=== PATIENT | male | born 1945 | race Caucasian/White ===

== ENCOUNTER 2021-05-25 00:32 | Observation (INO) ==
[2021-05-25] MEDS ORDERED: ONDANSETRON 4 MG/2 ML VIAL IV PRN (00:42)
[2021-05-25] MEDS ORDERED: ACETAMINOPHEN 325 MG TABLET PO PRN (00:42)
[2021-05-25] MEDS ORDERED: IBUPROFEN 600 MG TABLET PO PRN (00:42)
--- NOTE | 2021-05-25 00:50 | Internal Med History&Physical ---
HPI History of Present Illness Patient information: Note initiated : 05/25/21 at 12:45 am Service Date, if different from initiated Date: [] Patient: Casey Strauss 75 y/o M admitted on for Pain control. Chief Complaint: [] History of present illness: Mr. Strauss is a 75 year old male with a history of Parkinson's disease, diabetes mellitus, CAD, prior cervical spine surgery, and back pain that has progressed for over a week who lives in assisted living and suffered a mechanical fall at home. The patient feels like he fell because of his back pain which is worse with standing. He was seen at [facility] ED where a CT head and xrays of his back were done as well as laboratory workup that did not show any acute issues. The ED provider felt the patient needed to be admitted observation. He was transferred to [facility] due to lack of beds at [facility]. Review of systems Constitutional: no fever, fatigue, or weight loss Eyes: no vision changes or pain Cardiovascular: no chest pain, no palpitations Respiratory: no cough or dyspnea Gastrointestinal: no abdominal pain, no nausea, vomiting, or diarrhea Genitourinary: no dysuria or difficulty voiding Musculoskeletal: positive for pain on right forehead and back pain Integumentary: no skin lesion or wound Neurological: no focal weakness or numbness Psychiatric: no anxiety Physical exam Head: Atraumatic, normal inspection. Eyes: normal appearance, no scleral icterus. Neck: full ROM Respiratory: no respiratory distress. Cardiovascular: normal rate and rhythm, S1, S2. GI/Abdominal: obesity distended, surgical abdominal scars, soft, nontender, no guarding. Extremities: full range of motion, back pain to bilateral passive leg raise, back tenderness with palpation Neurological: CN II-XII intact, intact motor, intact sensation. Psychiatric: normal mood. Skin: warm, normal color MEDS/ALLERGIES Home Medications and Allergies Home Medications Medication Instructions Recorded Confirmed Type atorvastatin [Lipitor] 80 mg PO QPM 05/25/21 05/25/21 History calcium acetate(phosphat bind) 667 mg PO QAM 05/25/21 05/25/21 History carbidopa-levodopa [Sinemet] 25 - 100 tab PO Q8H 05/25/21 05/25/21 History escitalopram oxalate [Lexapro] 20 mg PO QAM 05/25/21 05/25/21 History finasteride [Proscar] 5 mg PO QAM 05/25/21 05/25/21 History isosorbide dinitrate 10 mg PO HS 05/25/21 05/25/21 History lisinopril 2.5 mg PO QAM 05/25/21 05/25/21 History metformin 1,000 mg PO BID 05/25/21 05/25/21 History metoprolol tartrate 25 mg PO QAM 05/25/21 05/25/21 History montelukast [Singulair] 10 mg PO QPM 05/25/21 05/25/21 History pantoprazole [Protonix] 40 mg PO QAM 05/25/21 05/25/21 History pregabalin [Lyrica] 150 mg PO TID 05/25/21 05/25/21 History sertraline [Zoloft] 100 mg PO QAM 05/25/21 05/25/21 History tamsulosin [Flomax] 0.4 mg PO QPM 05/25/21 05/25/21 History trazodone 100 mg PO QPM 05/25/21 05/25/21 History Allergies Allergy/AdvReac Type Severity Reaction Status Date / Time metoclopramide [From Reglan] Allergy Intermediate Shakiness Verified 05/25/21 03:41 promethazine Allergy Intermediate Shakiness Verified 05/25/21 03:41 quetiapine Allergy Intermediate Shakiness Verified 05/25/21 03:41 risperidone Allergy Intermediate Shakiness Verified 05/25/21 03:41 A/P Narrative A/P Narrative: Assessment: 75 year old male with a history of Parkinson's disease, diabetes mellitus, CAD who lives in assisted living and suffered a mechanical fall at home. #Acute on chronic back pain #Mechanical fall #Elevated creatinine #Parkinson's disease #Diabetes mellitus #Coronary artery disease #Depression #BPH Plan -Admit to observation -MRI lumbar spine -Analgesics prn. -Essential home meds. -PT and OT -DVT ppx: Ambulatory -Code status: Full -Disposition: Probably SNF Time Spent With Patient Time: Total time spent is greater than 50% in coordination of care (as documented) at patient's floor/unit and/or counseling patient:
[2021-05-25 03:53] LABS: Hematocrit 37.7 % (40.1-51.0); Hemoglobin 12.2 g/dL (13.7-17.5); Mean Cell Volume 93.5 fL (80.0-100.0); Mean Corpuscular HGB Conc 32.4 g/dL (31.0-36.0); Mean Platelet Volume 10.3 fL (7.4-10.4); Platelet Count 196 K/mcL (140-440); RBC 4.03 M/mcL (4.63-6.08); Red Cell Distribution Width 13.9 % (11.5-14.5)
[2021-05-25] MEDS ORDERED: IBUPROFEN 600 MG TABLET PO ONE (03:53)
[2021-05-25 04:03] LABS: ALT/SGPT 5 U/L (<40); AST/SGOT 23 U/L (<40); Albumin 3.5 gm/dL (3.2-5.2); Albumin/Globulin Ratio 1.6 (1.0-2.3); Alkaline Phosphatase 42 U/L (39-117); Bilirubin,Direct < 0.2 mg/dL (0-0.3); Bilirubin,Total 0.3 mg/dL (0.1-1.0); Blood Urea Nitrogen 21 mg/dL (8-23); Calcium 8.6 mg/dL (8.6-10.4); Carbon Dioxide 27 mmol/L (22-30); Chloride 106 mmol/L (96-108); Globulin 2.2 gm/dL (2.2-3.7); Glomerular Filtration Rate 54; Glucose 104 mg/dL (70-105); Lactate Dehydrogenase 133 U/L (135-225); Phosphorous 3.9 mg/dL (2.5-4.5); Triglycerides 58 mg/dL (<150); Uric Acid 6.6 mg/dL (2.5-8.0)
[2021-05-25 05:20] LABS: Band Neutrophils % 2 % (0-10); Lymphocytes % 26 % (15-49); Monocytes % (Manual) 9 % (1-12); Platelet Estimate NORMAL (Normal); RBC Morphology NORMAL (Normal); Reactive Lymphocytes 2 % (0-2); Segmented Neutrophils % 61 % (38-78)
[2021-05-25] MEDS ORDERED: MAGNESIUM SULFATE 2 GM/50 ML BAG IV ONE (07:33)
[2021-05-25] MEDS ORDERED: 0.9 % SODIUM CHLORIDE 500 ML IV ONE (07:33)
[2021-05-25] MEDS ORDERED: HYDROcodone/APAP 5/325MG TABLET PO PRN (08:21)
[2021-05-25] MEDS ORDERED: HYDROmorphone 0.5 MG/0.5 ML SYRINGE IV PRN (08:21)
[2021-05-25] MEDS: FINASTERIDE 5 MG TABLET PO SCH (08:23)
[2021-05-25] MEDS: DOCUSATE SODIUM 100 MG CAPSULE PO SCH ×2 (08:23→21:02)
[2021-05-25] MEDS: metFORMIN 500 MG TABLET PO SCH ×2 (08:23→16:51)
[2021-05-25] MEDS: METOPROLOL TARTRATE 25 MG TABLET PO SCH (08:23)
[2021-05-25] MEDS: PANTOPRAZOLE 40 MG TABLET PO SCH (08:23)
[2021-05-25] MEDS: PREGABALIN 150 MG CAPSULE PO SCH ×3 (08:23→21:02)
[2021-05-25] MEDS: ESCITALOPRAM 20 MG TABLET PO SCH (08:23)
[2021-05-25] MEDS: 0.9 % SODIUM CHLORIDE 10 ML SYRINGE IV SCH ×3 (08:25→21:03)
[2021-05-25] MEDS: POLYETHYLENE GLYCOL 3350 17 GM PACKET PO SCH (08:53)
[2021-05-25] MEDS: CARBIDOPA/LEVODOPA 25/100 TABLET PO SCH ×3 (08:53→21:01)
[2021-05-25] MEDS ORDERED: traMADol 50 MG TABLET PO PRN (10:48)
--- NOTE | 2021-05-25 14:20 | Magnetic Resonance Report ---
History: Progressively worsening low back pain over the past week and a recent fall while at home, prior laminectomies TECHNIQUE: Multiplanar imaging was performed using multiple pulse sequences. FINDINGS: There is no fracture or destructive bone lesion. No paraspinal mass or hematoma are present. There are multiple cysts in both kidneys. These were documented on the prior CT scan on 05/10/21 at [facility] and have not changed significantly. At L5-S1 there is a laminotomy defect on the right side. The disc is normal in height. There is a small bulge posterolaterally on the right side. There is a defect in the annulus to the right of midline which is probably related to the prior surgery. There is moderate to severe stenosis of the right-side neural foramen and moderate stenosis on the left. Central canal is not not distorted or narrowed. L4-5 disc is mildly narrowed and degenerated. The patient had a prior wide laminectomy performed. There are small bulges posterolaterally on both sides and mild to moderate arthritis in both facets. This is causing mild distortion of the thecal sac but relatively little central canal stenosis. There is moderate stenosis of both neural foramina, right greater than left. L3-4 disc is moderately narrowed and degenerated. There is 3 mm retrolisthesis of L3 posterior to L4. Associated with this is a large broad-based posterior bulge. Wide laminectomy is present at this level. There is no spinal canal stenosis. There is moderate stenosis of both neural foramina. L2-3 disc is mildly narrowed and degenerated. There is a small broad-based bulge extending outward into both neural foramina. Central canal is normal. There is mild narrowing of both neural foramina. L1-2 disc is normal in height. There is a Schmorl's noted along the inferior endplate of L1. There is no disc bulge or herniation. Central canal and neural foramina are normal. T11-T12 and T12-L1 disc spaces are normal. There is stenosis of the left-sided neural foramen at T11-12 due to arthritis in the facets. Allowing for differences in technique there has been no change in appearance of the spine since the recent CT scan. The spinal cord is normal and the conus is at the upper level of L1. IMPRESSION: Normal postoperative changes following laminectomies at L3-4 and L4-5 and laminotomy on the right side at L5-S1. Bulging discs at L2-3 L3-4 and L4-5 and L5-S1 with the largest bulge at L3-4 Stenosis of the neural foramina bilaterally throughout the mid and lower lumbar spine. The greatest narrowing is on the right side at L5-S1 No fracture or evidence of acute spinal injury Interpreted and Authenticated by: Aaron Luna 05/25/21
[2021-05-25] MEDS ORDERED: DEXTROSE 50% 50 ML VIAL IV PRN (14:23)
[2021-05-25] MEDS ORDERED: DEXTROSE 31 GM ORAL.SUSP PO PRN (14:23)
[2021-05-25] MEDS: INSULIN LISPRO 1 UNIT/0.01 ML UNIT SQ SCH ×2 (16:49→21:02)
[2021-05-25] MEDS ORDERED: SENNOSIDES 1 TABLET PO SCH (21:00)
[2021-05-25] MEDS ORDERED: TAMSULOSIN 0.4 MG CAPSULE PO SCH (21:00)
[2021-05-25] MEDS ORDERED: ISOSORBIDE DINITRATE 10 MG TABLET PO SCH (21:00)
[2021-05-25] MEDS ORDERED: ATORVASTATIN 40 MG TABLET PO SCH (21:00)
[2021-05-25] MEDS ORDERED: MONTELUKAST 10 MG TABLET PO SCH (21:00)
[2021-05-26] MEDS: 0.9 % SODIUM CHLORIDE 10 ML SYRINGE IV SCH (05:40)
[2021-05-26] MEDS: INSULIN LISPRO 1 UNIT/0.01 ML UNIT SQ SCH ×2 (06:53→11:13)
[2021-05-26] MEDS: PANTOPRAZOLE 40 MG TABLET PO SCH (06:55)
[2021-05-26 07:06] LABS: Albumin 3.3 gm/dL (3.2-5.2); Blood Urea Nitrogen 19 mg/dL (8-23); Calcium 8.8 mg/dL (8.6-10.4); Carbon Dioxide 26 mmol/L (22-30); Chloride 105 mmol/L (96-108); Glomerular Filtration Rate 74; Glucose 100 mg/dL (70-105); Phosphorous 3.1 mg/dL (2.5-4.5)
[2021-05-26] MEDS: metFORMIN 500 MG TABLET PO SCH (07:46)
[2021-05-26] MEDS: PREGABALIN 150 MG CAPSULE PO SCH (08:15)
[2021-05-26] MEDS: METOPROLOL TARTRATE 25 MG TABLET PO SCH (08:15)
[2021-05-26] MEDS: DOCUSATE SODIUM 100 MG CAPSULE PO SCH (08:15)
[2021-05-26] MEDS: FINASTERIDE 5 MG TABLET PO SCH (08:16)
[2021-05-26] MEDS: CARBIDOPA/LEVODOPA 25/100 TABLET PO SCH ×2 (08:16→11:15)
[2021-05-26] MEDS: ESCITALOPRAM 20 MG TABLET PO SCH (08:16)
[2021-05-26] MEDS: POLYETHYLENE GLYCOL 3350 17 GM PACKET PO SCH (08:16)
[2021-05-26] MEDS ORDERED: KETOROLAC 15 MG/ML VIAL IV ONE (08:52)
--- NOTE | 2021-05-26 09:02 | Discharge Summary ---
Discharge Provider Provider Patient information: Note initiated : 05/26/21 at 8:57 am Service Date, if different from initiated Date: [] Patient: Casey Strauss 75 y/o M admitted on 05/25/21 for Pain control. Chief Complaint: [] Date of admission: 05/25/21 02:43 Discharge date: 05/26/21 Discharge Meds Discharge Medications Home Medications Lantus Solostar U-100 Insulin 25 unit SUBCUT HS 05/25/21 [History Confirmed 05/25/21 Last Taken Unknown] Lantus Solostar U-100 Insulin 30 unit SUBCUT DAILY 05/25/21 [History Confirmed 05/25/21 Last Taken Unknown] atorvastatin [Lipitor] 80 mg PO QPM 05/25/21 [History Confirmed 05/25/21 Last Taken Unknown] calcium acetate(phosphat bind) 667 mg PO QAM 05/25/21 [History Confirmed 05/25/21 Last Taken 05/24/21 09:00] carbidopa-levodopa [Sinemet] 25 - 100 tab PO Q8H 05/25/21 [History Confirmed 05/25/21 Last Taken 05/25/21] docusate sodium [Colace] 100 mg PO BID 05/25/21 [History Confirmed 05/25/21 Last Taken Unknown] escitalopram oxalate [Lexapro] 20 mg PO QAM 05/25/21 [History Confirmed 05/25/21 Last Taken 05/24/21 09:00] finasteride [Proscar] 5 mg PO QAM 05/25/21 [History Confirmed 05/25/21 Last Taken 05/24/21 09:00] isosorbide dinitrate 10 mg PO HS 05/25/21 [History Confirmed 05/25/21 Last Taken 05/23/21 21:00] lisinopril 2.5 mg PO QAM 05/25/21 [History Confirmed 05/25/21 Last Taken 05/24/21 09:00] metformin 1,000 mg PO BID 05/25/21 [History Confirmed 05/25/21 Last Taken 05/24/21 09:00] metoprolol tartrate 25 mg PO QAM 05/25/21 [History Confirmed 05/25/21 Last Taken 05/24/21 09:00] montelukast [Singulair] 10 mg PO QPM 05/25/21 [History Confirmed 05/25/21 Last Taken Unknown] pantoprazole [Protonix] 40 mg PO QAM 05/25/21 [History Confirmed 05/25/21 Last Taken 05/24/21 09:00] pregabalin [Lyrica] 150 mg PO TID 05/25/21 [History Confirmed 05/25/21 Last Taken 05/25/21] sennosides [senna] 8.6 mg PO BID 05/25/21 [History Confirmed 05/25/21 Last Taken Unknown] sertraline [Zoloft] 100 mg PO QAM 05/25/21 [History Confirmed 05/25/21 Last Taken 05/24/21 09:00] tamsulosin [Flomax] 0.4 mg PO QPM 05/25/21 [History Confirmed 05/25/21 Last Taken Unknown] trazodone 100 mg PO QPM 05/25/21 [History Confirmed 05/25/21 Last Taken Unknown] diclofenac sodium [Voltaren Arthritis Pain] 4 g TOPICAL QID 7 Days #100 g 05/26/21 [Rx Last Taken Unknown] COURSE Hospital Course Hospital course: Mr. Strauss is a 75 year old male with a history of Parkinson's disease, diabetes mellitus, CAD, prior cervical spine surgery, and back pain that has progressed for over a week who lives in assisted living and suffered a mechanical fall at home. The patient feels like he fell because of his back pain which is worse with standing. He was seen at [facility] ED where a CT head and xrays of his back were done as well as laboratory workup that did not show any acute issues. The ED provider felt the patient needed to be admitted observation. He was transferred to [facility] due to lack of beds at [facility]. 05/26: MRI lumbar spine showed normal post operative laminectomy changes and degenerative vertebral/disk disease with bilateral neural foramina stenosis throughout mid and lower lumbar spine, no fracture of acute spinal injury. The patinet wants to return to the adult family home where he lives. Renal function normal today. The patient says NSAIDs work best for his back pain, he does not tolerate opioids and Tylenol has not been effective. Ordered Toradol IV once, will discharge with 7 days of Diclofenac gell QID. The patient already has home health at the adult family home. Post hospital follow up; -Pain control for back pain. -Monitor renal function with NSAIDs. Physical exam Head: Atraumatic, normal inspection. Eyes: normal appearance, no scleral icterus. Neck: full ROM Respiratory: no respiratory distress. Cardiovascular: normal rate and rhythm, S1, S2. GI/Abdominal: obesity distended, surgical abdominal scars, soft, nontender, no guarding. Extremities: full range of motion, back pain to bilateral passive leg raise, back tenderness with palpation Neurological: CN II-XII intact, intact motor, intact sensation. Psychiatric: normal mood. Skin: warm, normal color Discharge diagnosis: Acute on chronic back pain Secondary discharge diagnosis: Fall due to back pain Parkinson's disease Time Spent with Patient Time attestation: Total time spent providing and/or coordinating discharge services: EXAM Constitutional Vitals: Temp Pulse Resp BP Pulse Ox 97.1 F 68 20 93/65 95 05/26/21 07:30 05/26/21 07:30 05/26/21 07:30 05/26/21 07:30 05/26/21 07:30 Discharge Data Data Completed and Pending Labs on day of discharge: Labs from last 24 hours 05/26/21 05:21 Sodium 140 Potassium 4.9 Chloride 105 Carbon Dioxide 26 Anion Gap 9.0 BUN 19 Creatinine 1.0 GFR Calculation 74 Glucose 100 Calcium 8.8 Phosphorus 3.1 Albumin 3.3 Discharge Plan Patient/Caregiver Discharge Instructions Activity: as per physical therapy Diet: Consistent Carbohydrate Prescriptions: New diclofenac sodium [Voltaren Arthritis Pain] 1 % gel 4 g topical QID 7 Days Qty: 100 RF: 0 Continued isosorbide dinitrate 10 mg tablet 10 mg PO HS RF: 0 atorvastatin [Lipitor] 80 mg tablet 80 mg PO QPM RF: 0 sertraline [Zoloft] 100 mg tablet 100 mg PO QAM RF: 0 tamsulosin [Flomax] 0.4 mg capsule 0.4 mg PO QPM RF: 0 trazodone 100 mg tablet 100 mg PO QPM RF: 0 pantoprazole [Protonix] 40 mg tablet,delayed release (DR/EC) 40 mg PO QAM RF: 0 metformin 1,000 mg tablet 1,000 mg PO BID RF: 0 montelukast [Singulair] 10 mg tablet 10 mg PO QPM RF: 0 carbidopa-levodopa [Sinemet] 25-100 mg tablet 25 - 100 tab PO Q8H RF: 0 lisinopril 2.5 mg tablet 2.5 mg PO QAM RF: 0 finasteride [Proscar] 5 mg tablet 5 mg PO QAM RF: 0 escitalopram oxalate [Lexapro] 20 mg tablet 20 mg PO QAM RF: 0 metoprolol tartrate 25 mg tablet 25 mg PO QAM RF: 0 calcium acetate(phosphat bind) 667 mg capsule 667 mg PO QAM RF: 0 pregabalin [Lyrica] 150 mg capsule 150 mg PO TID RF: 0 sennosides [senna] 8.6 mg Tablet 8.6 mg PO BID RF: 0 docusate sodium [Colace] 100 mg Capsule 100 mg PO BID RF: 0 Lantus Solostar U-100 Insulin 100 unit/mL (3 mL) Insulin Pen 30 unit SUBCUT DAILY RF: 0 Lantus Solostar U-100 Insulin 100 unit/mL (3 mL) Insulin Pen 25 unit SUBCUT HS RF: 0 Other Ambulatory Orders: Physical Therapy at Discharge - General (Routine) Location: None Selected Ordered By: Zafar Carcamo Follow Up Plan Patient Disposition: Home Health Service Overall status at discharge: patient is progressing back to baseline Discharge Orders: Discharge Order (Routine); Ordered 05/26/21 Ordered By: Zafar Carcamo
== END 2021-05-26 13:00 | disposition home health service (06) ==
LOC: MEDSUR
PROVIDERS: ADMIT Internal Medicine; ATTEND Internal Medicine